=== PATIENT | female | born 1960 | race Two or more races ===

== ENCOUNTER 2018-05-18 10:45 | Outpatient (CLI) | payer OTHER ==
[2018-05-18 11:19] LABS: *BILIRUBIN,URIN NEGATIVE (NEGATIVE); *BLOOD, URINE NEGATIVE (NEGATIVE); *CLARITY,URINE CLEAR (CLEAR); *COLOR,URINE LIGHT YELLOW (YELLOW); *KETONES,URINE NEGATIVE (NEGATIVE); *PROTEIN,URINE NEGATIVE (NEGATIVE); *UROBILINOGEN,URINE 0.2 E.U./dl (NORMAL); LEUKOCYTE ESTERASE ,URINE NEGATIVE (NEGATIVE); NITRITE, URINE NEGATIVE (NEGATIVE); UGLUCOSE NEGATIVE (NEGATIVE)
[2018-05-18 11:24] LABS: BASOPHILS % (AUTO) 0.6 % (0.0-2.0); CREATININE 0.7 mg/dL (0.6-1.3); EOSINOPHILS # (AUTO) 0.1 K/uL (0.0-0.7); EOSINOPHILS % (AUTO) 1.6 % (0.0-7.0); HEMATOCRIT 43.2 % (31.2-41.9); HEMOGLOBIN 15.1 g/dL (10.9-14.3); LYMPHOCYTES # (AUTO) 2.6 K/uL (20.0-40.0); LYMPHOCYTES % (AUTO) 35.5 % (20.5-51.5); MEAN CORPUSCULAR HEMOGLOBIN 31.5 uug (24.7-32.8); MEAN CORPUSCULAR HGB CONC 35 g/dL (32.3-35.6); MONOCYTES # (AUTO) 0.3 K/uL (2.0-10.0); MONOCYTES % (AUTO) 4.2 % (0.0-11.0); NEUTROPHILS # (AUTO) 4.3 K/uL (1.8-8.9); NEUTROPHILS % (AUTO) 58.1 % (38.5-71.5); PLATELET COUNT (AUTO) 284 K/uL (179-408); POTASSIUM 3.8 mmol/L (3.5-5.1); WHITE BLOOD COUNT (AUTO) 7.4 K/uL (3.8-11.8)
[2018-05-18 11:30] LABS: BILIRUBIN,TOTAL 0.8 mg/dL (0.2-1.0); TOTAL PROTEIN, SERUM 7.6 g/dL (6.4-8.2)
== END 2018-05-18 23:59 | disposition home or self-care (01) ==
LOC: RAD 10:45
PROVIDERS: ATTEND Orthopaedic Surgery
DX: Z01.818 Encounter for other preprocedural examination (principal); S83.242A Other tear of medial meniscus, current injury, left knee, initial encounter; X58.XXXA Exposure to other specified factors, initial encounter; Y93.89 Activity, other specified; Y92.89 Other specified places as the place of occurrence of the external cause; Y99.8 Other external cause status
CPT/HCPCS: 36415; 71045; 85025; 85730; 93005; A4663

== ENCOUNTER 2018-05-21 06:33 | Day surgery (SDC) | payer OTHER ==
[2018-05-21] MEDS ORDERED: IV NORMAL SALINE 1000 ML BAG IV ONE (06:34)
[2018-05-21] MEDS ORDERED: IRR NORMAL SALINE IRRIGATION 4000 ML BOTTLE IR ONE (06:34)
[2018-05-21] MEDS ORDERED: PROPOFOL 200 MG/20 ML BOTTLE IV ONE (06:34)
[2018-05-21] MEDS ORDERED: SEVOFLURANE 250 ML BOTTLE IH ONE (06:34)
[2018-05-21] MEDS ORDERED: ONDANSETRON 4 MG/2 ML VIAL IV ONE (06:34)
[2018-05-21] MEDS ORDERED: MORPHINE SULFATE PF 10 MG/10 ML AMPUL IV ONE (07:43)
[2018-05-21] MEDS ORDERED: BUPIVACAINE 0.25% 30 ML VIAL ONE (07:48)
[2018-05-21] MEDS ORDERED: MIDAZOLAM HCL 2 MG/2 ML VIAL ONE (08:02)
[2018-05-21] MEDS ORDERED: METOCLOPRAMIDE HCL 10 MG/2 ML VIAL ONE (08:03)
[2018-05-21] MEDS ORDERED: FENTANYL CITRATE 250 MCG/5 ML AMPUL ONE (08:03)
[2018-05-21] MEDS ORDERED: CLINDAMYCIN PHOSPHATE 600 MG/4 ML VIAL ONE (08:05)
[2018-05-21] MEDS ORDERED: ONDANSETRON 4 MG/2 ML VIAL ONE (11:33)
[2018-05-21] MEDS ORDERED: TRAMADOL HCL 50 MG TABLET ONE (12:31)
== END 2018-05-21 12:40 | disposition home or self-care (01) ==
LOC: DS 06:33
PROVIDERS: ATTEND Orthopaedic Surgery
DX: M23.201 Derangement of unspecified lateral meniscus due to old tear or injury, left knee (principal); M94.262 Chondromalacia, left knee; M65.862 Other synovitis and tenosynovitis, left lower leg; I10 Essential (primary) hypertension; Z98.890 Other specified postprocedural states; Z83.3 Family history of diabetes mellitus; E11.9 Type 2 diabetes mellitus without complications; M19.90 Unspecified osteoarthritis, unspecified site; G89.29 Other chronic pain; Z88.0 Allergy status to penicillin; Z88.2 Allergy status to sulfonamides
CPT/HCPCS: 29881; 82962; J2250; J2274; J2405; J2765; J3010; J3490 ×2; A4217; J7030